=== PATIENT | male | born 1965 | race Caucasian/White ===

== ENCOUNTER → 2023-03-29 13:19 | Outpatient (REF) | payer BC, SELFPAY | LOC: HWRAD 13:19 | PROVIDERS: ATTENDING PHYSICIAN Nurse Practitioner Adult Health | DX: R05.3 Chronic cough (principal); Z87.09 Personal history of other diseases of the respiratory system; D50.9 Iron deficiency anemia, unspecified; R74.8 Abnormal levels of other serum enzymes | CPT/HCPCS: 71260; 74177; Q9967 ==

== ENCOUNTER 2023-04-10 07:19 | Outpatient (REF) | payer BC, SELFPAY ==
[2023-04-10] VITALS (11 sets, daily range): BP systolic 99–157; BP diastolic 87–98
[2023-04-10 07:36] LABS: % Basophils 0.5 % (0-2); % Eosinophils 1.9 % (0-6); % Immature Granulocytes 0.8 % (0-0.5); % Lymphocytes 6.4 % (20.5-51.1); % Neutrophils 82.4 % (42.2-75.2); Absolute Basophils 0.1 10^3/uL (0-0.2); Absolute Eosinophils 0.3 10^3/uL (0-0.7); Absolute Immature Granulocytes 0.1 10^3/uL (0-0.05); Absolute Monocytes 1.3 10^3/uL (0.1-0.6); Absolute Neutrophils 13.1 10^3/uL (1.4-6.5); Hematocrit 32.2 % (39.0-52.0); Mean Corp Hgb Conc. 31.1 g/dL (33.0-37.0); Mean Platelet Volume 9.2 fL (7.4-10.4); Nucleated Red Blood Cells % 0 % (-); Platelet Count 443 10^3/uL (130-400); Red Blood Cell Count 4.35 10^6/uL (4.70-6.10); Red Cell Dist. Width 15.1 % (11.5-14.5); White Blood Cell Count 15.9 10^3/uL (4.8-10.8)
[2023-04-10 07:49] LABS: INR 1.05; PT 13.5 Sec (11.4-14.6)
== END 2023-04-10 11:30 | disposition home or self-care (01) ==
LOC: RADI 07:19
PROVIDERS: ATTENDING PHYSICIAN Nurse Practitioner Adult Health; FAMILY PHYSICIAN Physician Assistant
DX: C78.7 Secondary malignant neoplasm of liver and intrahepatic bile duct (principal); C18.9 Malignant neoplasm of colon, unspecified; K63.89 Other specified diseases of intestine
CPT/HCPCS: 88307; 36415; 47000; 76937; 85025; 85610; 88333; 88341; 88342; 99152; 99153

== ENCOUNTER → 2023-04-24 12:46 | Outpatient (REF) | payer BC, SELFPAY | LOC: HWCARD 12:46 | PROVIDERS: ATTENDING PHYSICIAN Internal Medicine Hematology & Oncology; FAMILY PHYSICIAN Nurse Practitioner Adult Health | DX: C18.7 Malignant neoplasm of sigmoid colon (principal); C78.7 Secondary malignant neoplasm of liver and intrahepatic bile duct; C78.01 Secondary malignant neoplasm of right lung; R91.1 Solitary pulmonary nodule; D75.839 Thrombocytosis, unspecified; D50.0 Iron deficiency anemia secondary to blood loss (chronic) | CPT/HCPCS: 80053; 85025; 93005 ==

== ENCOUNTER → 2023-04-25 12:28 | Outpatient (REF) | payer BC, SELFPAY ==
[2023-04-25 13:00] VITALS: BP 155/99; BP_SYST 107
[2023-04-25] MEDS: ANCEF 10 IV (13:18)
[2023-04-25 14:43] VITALS: BP 149/92
== END ==
LOC: RADI 12:28
PROVIDERS: ATTENDING PHYSICIAN Internal Medicine Hematology & Oncology; FAMILY PHYSICIAN Nurse Practitioner Adult Health
DX: C18.7 Malignant neoplasm of sigmoid colon (principal)
CPT/HCPCS: 36561; 76937; 77001; 99152; 99153; C1788

== ENCOUNTER 2023-05-11 10:33 | Outpatient (RCR) | payer BC, SELFPAY ==
[2023-05-11 10:50] VITALS: BP 143/82
[2023-05-11] MEDS: TYLENOL 650 MG PO (11:03)
[2023-05-11 11:13] VITALS: BP 143/82
[2023-05-11 11:31] VITALS: BP 135/79
[2023-05-11 13:23] VITALS: BP 136/82
== END 2023-06-06 23:59 | disposition home or self-care (01) ==
LOC: OID 10:33
PROVIDERS: ATTENDING PHYSICIAN Internal Medicine Hematology & Oncology; FAMILY PHYSICIAN Nurse Practitioner Adult Health
DX: C18.7 Malignant neoplasm of sigmoid colon (principal); C78.7 Secondary malignant neoplasm of liver and intrahepatic bile duct; C78.01 Secondary malignant neoplasm of right lung; D50.9 Iron deficiency anemia, unspecified
CPT/HCPCS: 36430; 86850; 86900; 86901; 86920; P9016

== ENCOUNTER → 2023-05-12 14:34 | Outpatient (REF) | payer BC, SELFPAY ==
[2023-05-12 19:08] LABS: % Basophils 0.9 % (0-2); % Eosinophils 4.4 % (0-6); % Immature Granulocytes 0.3 % (0-0.5); % Lymphocytes 29.3 % (20.5-51.1); % Monocytes 12.9 % (1.7-9.3); % Neutrophils 52.2 % (42.2-75.2); Absolute Eosinophils 0.1 10^3/uL (0-0.7); Absolute Lymphocytes 0.9 10^3/uL (1.2-3.4); Absolute Monocytes 0.4 10^3/uL (0.1-0.6); Absolute Neutrophils 1.7 10^3/uL (1.4-6.5); Hematocrit 27.7 % (39.0-52.0); Hemoglobin 8.4 g/dL (13.0-18.0); Mean Corp Hgb Conc. 30.3 g/dL (33.0-37.0); Mean Corpuscular Hgb 23.3 pg (27.0-31.0); Mean Corpuscular Volume 76.7 fL (80.0-94.0); Nucleated Red Blood Cells % 0 % (-); Platelet Count 481 10^3/uL (130-400); Red Blood Cell Count 3.61 10^6/uL (4.70-6.10); White Blood Cell Count 3.2 10^3/uL (4.8-10.8)
== END ==
LOC: CLAB 14:34
PROVIDERS: ATTENDING PHYSICIAN Nurse Practitioner Adult Health
DX: C18.7 Malignant neoplasm of sigmoid colon (principal); C78.7 Secondary malignant neoplasm of liver and intrahepatic bile duct; C78.01 Secondary malignant neoplasm of right lung; R91.1 Solitary pulmonary nodule; D75.839 Thrombocytosis, unspecified; D50.0 Iron deficiency anemia secondary to blood loss (chronic); D50.9 Iron deficiency anemia, unspecified
CPT/HCPCS: 36415; 85025

== ENCOUNTER → 2023-05-23 07:08 | Outpatient (REF) | payer BC, SELFPAY ==
[2023-05-26 20:26] LABS: % Basophils 0.4 % (0-2); % Eosinophils 0.4 % (0-6); % Immature Granulocytes 0.2 % (0-0.5); % Lymphocytes 15.4 % (20.5-51.1); % Monocytes 8.2 % (1.7-9.3); % Neutrophils 75.4 % (42.2-75.2); Absolute Lymphocytes 0.8 10^3/uL (1.2-3.4); Absolute Monocytes 0.5 10^3/uL (0.1-0.6); Absolute Neutrophils 4.1 10^3/uL (1.4-6.5); Hematocrit 30.7 % (39.0-52.0); Hemoglobin 9.6 g/dL (13.0-18.0); Mean Corp Hgb Conc. 31.3 g/dL (33.0-37.0); Mean Corpuscular Hgb 25.2 pg (27.0-31.0); Mean Corpuscular Volume 80.6 fL (80.0-94.0); Mean Platelet Volume 10.3 fL (7.4-10.4); Nucleated Red Blood Cells % 0 % (-); Platelet Count 242 10^3/uL (130-400); Red Blood Cell Count 3.81 10^6/uL (4.70-6.10); Red Cell Dist. Width 26.7 % (11.5-14.5); White Blood Cell Count 5.5 10^3/uL (4.8-10.8)
[2023-05-26 20:45] LABS: Phosphorus 4.4 mg/dl (2.5-4.5)
== END ==
LOC: CLAB 07:08
PROVIDERS: ATTENDING PHYSICIAN Internal Medicine Hematology & Oncology
DX: C18.7 Malignant neoplasm of sigmoid colon (principal); C78.7 Secondary malignant neoplasm of liver and intrahepatic bile duct; C78.01 Secondary malignant neoplasm of right lung; R91.1 Solitary pulmonary nodule; D75.839 Thrombocytosis, unspecified; D50.0 Iron deficiency anemia secondary to blood loss (chronic); D50.9 Iron deficiency anemia, unspecified
CPT/HCPCS: 36415; 84100; 85025

== ENCOUNTER → 2023-08-11 11:56 | Outpatient (REF) | payer BC, SELFPAY | LOC: HWRAD 11:56 | PROVIDERS: ATTENDING PHYSICIAN Internal Medicine Hematology & Oncology; FAMILY PHYSICIAN Nurse Practitioner Adult Health | DX: C18.7 Malignant neoplasm of sigmoid colon (principal); C78.7 Secondary malignant neoplasm of liver and intrahepatic bile duct; C78.01 Secondary malignant neoplasm of right lung | CPT/HCPCS: 71260; 74177; Q9967 ==

== ENCOUNTER → 2023-09-20 12:11 | Outpatient (REF) | payer BC, SELFPAY ==
[2023-09-20 13:03] LABS: ALT (SGPT) 50 U/L (0-50); AST (SGOT) 63 U/L (17-59); Alkaline Phosphatase 187 U/L (38-126); Blood Urea Nitrogen 18 mg/dl (9-20); Calcium 9.4 mg/dl (8.4-10.2); Carbon Dioxide 21 mmol/L (22-30); Chloride 105 mmol/L (98-107); Glucose 116 mg/dl (70-99); Potassium 3.9 mmol/L (3.5-5.1); Sodium 136 mmol/L (135-145); Total Bilirubin 1.4 mg/dl (0.2-1.3); Total Protein 6.7 g/dl (6.3-8.2); eGFR > 60.00
[2023-09-20 13:17] LABS: % Basophils 0.2 % (0-2); % Eosinophils 1.5 % (0-6); % Immature Granulocytes 2.6 % (0-0.5); % Lymphocytes 8.1 % (20.5-51.1); % Monocytes 10.6 % (1.7-9.3); Absolute Eosinophils 0.2 10^3/uL (0-0.7); Absolute Immature Granulocytes 0.3 10^3/uL (0-0.05); Absolute Monocytes 1.3 10^3/uL (0.1-0.6); Absolute Neutrophils 9.6 10^3/uL (1.4-6.5); Hematocrit 31.3 % (39.0-52.0); Hemoglobin 11.3 g/dL (13.0-18.0); Mean Corp Hgb Conc. 36.1 g/dL (33.0-37.0); Mean Corpuscular Hgb 37.3 pg (27.0-31.0); Mean Corpuscular Volume 103.3 fL (80.0-94.0); Mean Platelet Volume 10.5 fL (7.4-10.4); Nucleated Red Blood Cells % 0 % (-); Platelet Count 91 10^3/uL (130-400); Red Blood Cell Count 3.03 10^6/uL (4.70-6.10); Red Cell Dist. Width 14.2 % (11.5-14.5); White Blood Cell Count 12.4 10^3/uL (4.8-10.8)
== END ==
LOC: REG 12:11
PROVIDERS: ATTENDING PHYSICIAN Internal Medicine Hematology & Oncology; FAMILY PHYSICIAN Nurse Practitioner Adult Health
DX: C18.7 Malignant neoplasm of sigmoid colon (principal); C78.7 Secondary malignant neoplasm of liver and intrahepatic bile duct; C78.01 Secondary malignant neoplasm of right lung; R91.1 Solitary pulmonary nodule; D75.839 Thrombocytosis, unspecified; D50.0 Iron deficiency anemia secondary to blood loss (chronic); D50.9 Iron deficiency anemia, unspecified; K12.31 Oral mucositis (ulcerative) due to antineoplastic therapy; D51.9 Vitamin B12 deficiency anemia, unspecified; E83.39 Other disorders of phosphorus metabolism; R79.9 Abnormal finding of blood chemistry, unspecified
CPT/HCPCS: 36415; 80053; 85025

== ENCOUNTER → 2023-11-15 08:58 | Outpatient (REF) | payer BC, SELFPAY | LOC: HWRAD 08:58 | PROVIDERS: ATTENDING PHYSICIAN Internal Medicine Hematology & Oncology; FAMILY PHYSICIAN Internal Medicine | DX: C18.7 Malignant neoplasm of sigmoid colon (principal); C78.7 Secondary malignant neoplasm of liver and intrahepatic bile duct; C78.01 Secondary malignant neoplasm of right lung; R91.1 Solitary pulmonary nodule; D75.839 Thrombocytosis, unspecified; D50.0 Iron deficiency anemia secondary to blood loss (chronic); D50.9 Iron deficiency anemia, unspecified; K12.31 Oral mucositis (ulcerative) due to antineoplastic therapy; D51.9 Vitamin B12 deficiency anemia, unspecified; E83.39 Other disorders of phosphorus metabolism; R79.9 Abnormal finding of blood chemistry, unspecified | CPT/HCPCS: 71260; 74177; Q9967 ==

== ENCOUNTER → 2023-11-28 13:18 | Outpatient (REF) | payer BC, SELFPAY ==
[2023-11-28 17:39] LABS: % Basophils 0.1 % (0-2); % Eosinophils 0.4 % (0-6); % Immature Granulocytes 0.9 % (0-0.5); % Lymphocytes 4.5 % (20.5-51.1); % Monocytes 3.3 % (1.7-9.3); % Neutrophils 90.8 % (42.2-75.2); Absolute Eosinophils 0.1 10^3/uL (0-0.7); Absolute Immature Granulocytes 0.2 10^3/uL (0-0.05); Absolute Lymphocytes 0.7 10^3/uL (1.2-3.4); Absolute Monocytes 0.5 10^3/uL (0.1-0.6); Absolute Neutrophils 14.6 10^3/uL (1.4-6.5); Hemoglobin 11.3 g/dL (13.0-18.0); Mean Corp Hgb Conc. 34.2 g/dL (33.0-37.0); Mean Corpuscular Hgb 36.1 pg (27.0-31.0); Mean Corpuscular Volume 105.4 fL (80.0-94.0); Mean Platelet Volume 10.5 fL (7.4-10.4); Nucleated Red Blood Cells % 0 % (-); Platelet Count 93 10^3/uL (130-400); Red Blood Cell Count 3.13 10^6/uL (4.70-6.10); Red Cell Dist. Width 14.6 % (11.5-14.5); White Blood Cell Count 16.1 10^3/uL (4.8-10.8)
[2023-11-28 17:46] LABS: ALT (SGPT) 40 U/L (0-50); AST (SGOT) 64 U/L (17-59); Alkaline Phosphatase 272 U/L (38-126); Blood Urea Nitrogen 14 mg/dl (9-20); Carbon Dioxide 23 mmol/L (22-30); Chloride 100 mmol/L (98-107); Glucose 92 mg/dl (70-99); Iron 87 ug/dl (49-181); Magnesium 1.9 mg/dl (1.6-2.3); Sodium 137 mmol/L (135-145); Total Bilirubin 1.9 mg/dl (0.2-1.3); Total Protein 6.8 g/dl (6.3-8.2); eGFR > 60.00
[2023-11-28 17:56] LABS: Percent Saturation 26 % (20-50); Total Iron Binding Capacity 329 ug/dl (261-462)
[2023-11-29 17:52] LABS: Direct Bilirubin 0.6 mg/dl (0.0-0.4)
== END ==
LOC: HWLAB 13:18
PROVIDERS: ATTENDING PHYSICIAN Internal Medicine Hematology & Oncology; FAMILY PHYSICIAN Nurse Practitioner Adult Health
DX: C18.7 Malignant neoplasm of sigmoid colon (principal); C78.7 Secondary malignant neoplasm of liver and intrahepatic bile duct; C78.01 Secondary malignant neoplasm of right lung; R91.1 Solitary pulmonary nodule; D50.0 Iron deficiency anemia secondary to blood loss (chronic); D50.9 Iron deficiency anemia, unspecified; E83.39 Other disorders of phosphorus metabolism; R79.9 Abnormal finding of blood chemistry, unspecified
CPT/HCPCS: 36415; 80053; 82248; 82728; 83540; 83550; 83735; 85025

== ENCOUNTER → 2023-11-29 14:46 | Outpatient (REF) | payer BC, SELFPAY | LOC: RAD 14:46 | PROVIDERS: ATTENDING PHYSICIAN Nurse Practitioner Acute Care; FAMILY PHYSICIAN Nurse Practitioner Adult Health | DX: C18.7 Malignant neoplasm of sigmoid colon (principal); C78.7 Secondary malignant neoplasm of liver and intrahepatic bile duct; C78.01 Secondary malignant neoplasm of right lung; R91.1 Solitary pulmonary nodule; D75.839 Thrombocytosis, unspecified; D50.0 Iron deficiency anemia secondary to blood loss (chronic); D50.9 Iron deficiency anemia, unspecified; K12.31 Oral mucositis (ulcerative) due to antineoplastic therapy | CPT/HCPCS: 93971 ==

== ENCOUNTER → 2024-02-02 07:31 | Outpatient (REF) | payer BC, SELFPAY | LOC: RAD 07:31 | PROVIDERS: ATTENDING PHYSICIAN Internal Medicine Hematology & Oncology; FAMILY PHYSICIAN Nurse Practitioner Adult Health | DX: C18.7 Malignant neoplasm of sigmoid colon (principal); C78.7 Secondary malignant neoplasm of liver and intrahepatic bile duct; C78.01 Secondary malignant neoplasm of right lung; R91.1 Solitary pulmonary nodule; D75.839 Thrombocytosis, unspecified; D50.0 Iron deficiency anemia secondary to blood loss (chronic); D51.1 Vitamin B12 deficiency anemia due to selective vitamin B12 malabsorption with proteinuria; D51.9 Vitamin B12 deficiency anemia, unspecified; E83.39 Other disorders of phosphorus metabolism; R79.9 Abnormal finding of blood chemistry, unspecified; M79.661 Pain in right lower leg | CPT/HCPCS: 71260; 74177; Q9967 ==

== ENCOUNTER → 2024-02-12 06:57 | Outpatient (REF) | payer BC, SELFPAY ==
[2024-02-12 09:58] LABS: % Basophils 0.8 % (0-2); % Eosinophils 3.6 % (0-6); % Immature Granulocytes 0.8 % (0-0.5); % Lymphocytes 15.8 % (20.5-51.1); % Monocytes 8.5 % (1.7-9.3); % Neutrophils 70.5 % (42.2-75.2); Absolute Basophils 0.1 10^3/uL (0-0.2); Absolute Eosinophils 0.2 10^3/uL (0-0.7); Absolute Immature Granulocytes 0.1 10^3/uL (0-0.05); Absolute Lymphocytes 0.9 10^3/uL (1.2-3.4); Absolute Monocytes 0.5 10^3/uL (0.1-0.6); Absolute Neutrophils 4.2 10^3/uL (1.4-6.5); Hematocrit 39.4 % (39.0-52.0); Hemoglobin 12.6 g/dL (13.0-18.0); Mean Corpuscular Hgb 33.9 pg (27.0-31.0); Mean Corpuscular Volume 105.9 fL (80.0-94.0); Mean Platelet Volume 11.5 fL (7.4-10.4); Nucleated Red Blood Cells % 0 % (-); Platelet Count 83 10^3/uL (130-400); Red Blood Cell Count 3.72 10^6/uL (4.70-6.10); Red Cell Dist. Width 15.9 % (11.5-14.5); White Blood Cell Count 5.9 10^3/uL (4.8-10.8)
[2024-02-12 10:13] LABS: ALT (SGPT) 39 U/L (0-50); AST (SGOT) 58 U/L (17-59); Albumin 3.9 g/dl (3.5-5.0); Alkaline Phosphatase 162 U/L (38-126); Blood Urea Nitrogen 15 mg/dl (9-20); Carbon Dioxide 22 mmol/L (22-30); Chloride 105 mmol/L (98-107); Glucose 88 mg/dl (70-99); Potassium 3.8 mmol/L (3.5-5.1); Sodium 140 mmol/L (135-145); Total Bilirubin 1.8 mg/dl (0.2-1.3); Total Protein 6.9 g/dl (6.3-8.2); eGFR > 60.00
[2024-02-12 19:02] LABS: CEA 20.7 ng/ml
== END ==
LOC: HWLAB 06:57
PROVIDERS: ATTENDING PHYSICIAN Internal Medicine Hematology & Oncology; FAMILY PHYSICIAN Nurse Practitioner Adult Health
DX: C18.7 Malignant neoplasm of sigmoid colon (principal); C78.7 Secondary malignant neoplasm of liver and intrahepatic bile duct; C78.01 Secondary malignant neoplasm of right lung
CPT/HCPCS: 36415; 80053; 82378; 85025

== ENCOUNTER → 2024-04-30 06:40 | Outpatient (REF) | payer BC, SELFPAY | LOC: RAD 06:40 | PROVIDERS: ATTENDING PHYSICIAN Internal Medicine Hematology & Oncology; FAMILY PHYSICIAN Nurse Practitioner Adult Health | DX: C18.7 Malignant neoplasm of sigmoid colon (principal); C78.7 Secondary malignant neoplasm of liver and intrahepatic bile duct; C78.01 Secondary malignant neoplasm of right lung; R91.1 Solitary pulmonary nodule; D75.839 Thrombocytosis, unspecified; D50.0 Iron deficiency anemia secondary to blood loss (chronic); D50.9 Iron deficiency anemia, unspecified; K12.31 Oral mucositis (ulcerative) due to antineoplastic therapy; D51.9 Vitamin B12 deficiency anemia, unspecified; E83.39 Other disorders of phosphorus metabolism; R79.9 Abnormal finding of blood chemistry, unspecified; M79.661 Pain in right lower leg | CPT/HCPCS: 71260; 74177; Q9967 ==

== ENCOUNTER → 2024-05-21 16:01 | Outpatient (REF) | payer BC, SELFPAY ==
[2024-05-21 17:06] LABS: Urine Protein 15 mg/dl
[2024-05-21 18:06] LABS: Protein/creatinine Ratio 1.4
== END ==
LOC: REG 16:01
PROVIDERS: ATTENDING PHYSICIAN Internal Medicine Hematology & Oncology; FAMILY PHYSICIAN Nurse Practitioner Adult Health
DX: C18.7 Malignant neoplasm of sigmoid colon (principal); C78.7 Secondary malignant neoplasm of liver and intrahepatic bile duct; C78.01 Secondary malignant neoplasm of right lung; R91.1 Solitary pulmonary nodule; D75.839 Thrombocytosis, unspecified; D50.0 Iron deficiency anemia secondary to blood loss (chronic); D50.9 Iron deficiency anemia, unspecified; K12.31 Oral mucositis (ulcerative) due to antineoplastic therapy; D51.9 Vitamin B12 deficiency anemia, unspecified; E83.39 Other disorders of phosphorus metabolism; R79.9 Abnormal finding of blood chemistry, unspecified; M79.669 Pain in unspecified lower leg
CPT/HCPCS: 82570; 84156

== ENCOUNTER → 2024-07-02 11:14 | Outpatient (REF) | payer BC, SELFPAY | LOC: HWRAD 11:14 | PROVIDERS: ATTENDING PHYSICIAN Nurse Practitioner Primary Care; FAMILY PHYSICIAN Nurse Practitioner Adult Health | DX: C18.7 Malignant neoplasm of sigmoid colon (principal); C78.7 Secondary malignant neoplasm of liver and intrahepatic bile duct; C78.01 Secondary malignant neoplasm of right lung; R91.1 Solitary pulmonary nodule; D75.839 Thrombocytosis, unspecified; D50.0 Iron deficiency anemia secondary to blood loss (chronic); D50.9 Iron deficiency anemia, unspecified; K12.31 Oral mucositis (ulcerative) due to antineoplastic therapy; D51.9 Vitamin B12 deficiency anemia, unspecified; E83.39 Other disorders of phosphorus metabolism; R79.9 Abnormal finding of blood chemistry, unspecified; M79.661 Pain in right lower leg | CPT/HCPCS: 36415; 73502; 86850; 86900; 86901; 86920 ==

== ENCOUNTER 2024-07-04 07:45 | Outpatient (RCR) | payer BC, SELFPAY ==
[2024-07-04] VITALS (7 sets, daily range): BP systolic 105–133; BP diastolic 55–72
== END 2024-07-06 23:59 | disposition home or self-care (01) ==
LOC: OID 07:45
PROVIDERS: ATTENDING PHYSICIAN Internal Medicine Hematology & Oncology; FAMILY PHYSICIAN Nurse Practitioner Adult Health
DX: C18.7 Malignant neoplasm of sigmoid colon (principal); C78.7 Secondary malignant neoplasm of liver and intrahepatic bile duct; C78.01 Secondary malignant neoplasm of right lung; R91.1 Solitary pulmonary nodule; D75.839 Thrombocytosis, unspecified; D50.0 Iron deficiency anemia secondary to blood loss (chronic); K12.31 Oral mucositis (ulcerative) due to antineoplastic therapy; E83.39 Other disorders of phosphorus metabolism; R79.9 Abnormal finding of blood chemistry, unspecified; M79.661 Pain in right lower leg
CPT/HCPCS: 36415; 36430; 86850; 86900; 86901; 86920; P9016

== ENCOUNTER 2024-07-18 09:12 | Outpatient (RCR) | payer BC, SELFPAY ==
[2024-07-16 12:02] VITALS: BP 119/69
[2024-07-16 12:10] LABS: % Basophils 0.6 % (0-2); % Eosinophils 2.6 % (0-6); % Immature Granulocytes 0.7 % (0-0.5); % Lymphocytes 10.4 % (20.5-51.1); % Monocytes 7.4 % (1.7-9.3); % Neutrophils 78.3 % (42.2-75.2); Absolute Eosinophils 0.2 10^3/uL (0-0.7); Absolute Immature Granulocytes 0.1 10^3/uL (0-0.05); Absolute Lymphocytes 0.7 10^3/uL (1.2-3.4); Absolute Monocytes 0.5 10^3/uL (0.1-0.6); Absolute Neutrophils 5.5 10^3/uL (1.4-6.5); Hematocrit 22.4 % (39.0-52.0); Hemoglobin 6.9 g/dL (13.0-18.0); Mean Corp Hgb Conc. 30.8 g/dL (33.0-37.0); Mean Corpuscular Hgb 27.5 pg (27.0-31.0); Mean Corpuscular Volume 89.2 fL (80.0-94.0); Mean Platelet Volume 11.9 fL (7.4-10.4); Nucleated Red Blood Cells % 0 % (-); Platelet Count 164 10^3/uL (130-400); Red Blood Cell Count 2.51 10^6/uL (4.70-6.10); Red Cell Dist. Width 19.9 % (11.5-14.5); Reticulocyte Count 3.3 % (0.4-2.8)
[2024-07-16 12:16] LABS: ALT (SGPT) 22 U/L (0-50); AST (SGOT) 36 U/L (17-59); Albumin 3.4 g/dl (3.5-5.0); Alkaline Phosphatase 186 U/L (38-126); Blood Urea Nitrogen 14 mg/dl (9-20); Calcium 8.5 mg/dl (8.4-10.2); Carbon Dioxide 22 mmol/L (22-30); Chloride 110 mmol/L (98-107); Direct Bilirubin 0.2 mg/dl (0.0-0.4); Glucose 119 mg/dl (70-99); LDH 231 U/L (120-246); Potassium 3.7 mmol/L (3.5-5.1); Sodium 140 mmol/L (135-145); Total Bilirubin 1.2 mg/dl (0.2-1.3); Total Protein 6.1 g/dl (6.3-8.2); eGFR > 60.00
[2024-07-16 12:20] LABS: Erythrocyte Sed Rate 60 mm/hour (0-20)
[2024-07-16 12:25] VITALS: BP 103/61
[2024-07-16 12:45] LABS: CEA 91.3 ng/ml
[2024-07-16 14:04] LABS: Folate > 20.0 ng/ml (2.76-20); Vitamin B12 > 1000 pg/ml (239-931)
[2024-07-16 14:11] VITALS: BP 114/68
[2024-07-17 10:21] LABS: % Basophils 0.3 % (0-2); % Eosinophils 2.4 % (0-6); % Immature Granulocytes 0.6 % (0-0.5); % Lymphocytes 10.8 % (20.5-51.1); % Monocytes 7.6 % (1.7-9.3); % Neutrophils 78.3 % (42.2-75.2); Absolute Eosinophils 0.2 10^3/uL (0-0.7); Absolute Lymphocytes 0.7 10^3/uL (1.2-3.4); Absolute Monocytes 0.5 10^3/uL (0.1-0.6); Absolute Neutrophils 4.9 10^3/uL (1.4-6.5); Hemoglobin 7.7 g/dL (13.0-18.0); Mean Corp Hgb Conc. 30.8 g/dL (33.0-37.0); Mean Corpuscular Hgb 27.7 pg (27.0-31.0); Mean Corpuscular Volume 89.9 fL (80.0-94.0); Mean Platelet Volume 10.6 fL (7.4-10.4); Platelet Count 162 10^3/uL (130-400); Red Blood Cell Count 2.78 10^6/uL (4.70-6.10); White Blood Cell Count 6.3 10^3/uL (4.8-10.8)
[2024-07-18 09:50] VITALS: BP 108/67
[2024-07-18 09:54] VITALS: BP 108/67
[2024-07-18 10:14] VITALS: BP 112/69
[2024-07-18 12:01] VITALS: BP 113/64
[2024-07-18 18:16] LABS: Erythropoietin (EPO) 628 mU/mL (4-27)
[2024-07-18 22:05] LABS: Beta-2-Microglobulin 2.9 mg/L (0.8-2.4)
[2024-07-19 02:05] LABS: Haptoglobin 97 mg/dL (30-200)
[2024-07-19 14:56] LABS: Hemoglobin 8.3 g/dL (13.0-18.0); Mean Corp Hgb Conc. 30.7 g/dL (33.0-37.0); Mean Corpuscular Hgb 27.7 pg (27.0-31.0); Platelet Count 179 10^3/uL (130-400); Red Cell Dist. Width 19.6 % (11.5-14.5); White Blood Cell Count 8.6 10^3/uL (4.8-10.8)
[2024-07-19 14:57] LABS: % Basophils 0.7 % (0-2); % Eosinophils 2.3 % (0-6); % Immature Granulocytes 2.1 % (0-0.5); % Lymphocytes 11.1 % (20.5-51.1); % Monocytes 8.2 % (1.7-9.3); % Neutrophils 75.6 % (42.2-75.2); Absolute Basophils 0.1 10^3/uL (0-0.2); Absolute Eosinophils 0.2 10^3/uL (0-0.7); Absolute Immature Granulocytes 0.2 10^3/uL (0-0.05); Absolute Monocytes 0.7 10^3/uL (0.1-0.6); Absolute Neutrophils 6.5 10^3/uL (1.4-6.5); Nucleated Red Blood Cells % 0 % (-)
[2024-07-21 02:56] LABS: Albumin 3.13 g/dL (3.75-5.01); Alpha 1 Globulin 0.32 g/dL (0.19-0.46); Alpha 2 Globulin 0.54 g/dL (0.48-1.05); Free Kappa Light Chains,Quant 42.99 mg/L (3.30-19.40); Free Lambda Light Chains,Quant 36.34 mg/L (5.71-26.30); IgA 477 mg/dL (68-408); IgG 802 mg/dL (768-1632); IgM 81 mg/dL (35-263); Immunofixation Electrophoresis IFE Done; Kappa/Lambda Fr Light Ratio 1.18 (0.26-1.65); Total Protein-Electrophoresis 5.9 g/dL (6.3-8.2)
[2024-07-22 11:36] LABS: ALT (SGPT) 22 U/L (0-50); AST (SGOT) 40 U/L (17-59); Albumin 3.4 g/dl (3.5-5.0); Alkaline Phosphatase 189 U/L (38-126); Blood Urea Nitrogen 11 mg/dl (9-20); Calcium 8.8 mg/dl (8.4-10.2); Carbon Dioxide 21 mmol/L (22-30); Chloride 111 mmol/L (98-107); Glucose 155 mg/dl (70-99); Potassium 3.9 mmol/L (3.5-5.1); Sodium 140 mmol/L (135-145); Total Bilirubin 1.5 mg/dl (0.2-1.3); Total Protein 6.4 g/dl (6.3-8.2); eGFR > 60.00
[2024-07-22 11:37] LABS: % Basophils 0.6 % (0-2); % Eosinophils 2.5 % (0-6); % Immature Granulocytes 1.4 % (0-0.5); % Lymphocytes 9.6 % (20.5-51.1); % Monocytes 5.7 % (1.7-9.3); % Neutrophils 80.2 % (42.2-75.2); Absolute Basophils 0.1 10^3/uL (0-0.2); Absolute Eosinophils 0.2 10^3/uL (0-0.7); Absolute Immature Granulocytes 0.1 10^3/uL (0-0.05); Absolute Lymphocytes 0.8 10^3/uL (1.2-3.4); Absolute Monocytes 0.5 10^3/uL (0.1-0.6); Absolute Neutrophils 6.7 10^3/uL (1.4-6.5); Hematocrit 29.5 % (39.0-52.0); Hemoglobin 9.2 g/dL (13.0-18.0); Mean Corp Hgb Conc. 31.2 g/dL (33.0-37.0); Mean Corpuscular Hgb 28.8 pg (27.0-31.0); Mean Corpuscular Volume 92.5 fL (80.0-94.0); Nucleated Red Blood Cells % 0 % (-); Platelet Count 180 10^3/uL (130-400); Red Blood Cell Count 3.19 10^6/uL (4.70-6.10); Red Cell Dist. Width 22.7 % (11.5-14.5); White Blood Cell Count 8.4 10^3/uL (4.8-10.8)
[2024-07-26 13:53] LABS: % Basophils 0.1 % (0-2); % Eosinophils 0.2 % (0-6); % Immature Granulocytes 0.2 % (0-0.5); % Lymphocytes 7.1 % (20.5-51.1); % Monocytes 2.7 % (1.7-9.3); % Neutrophils 89.7 % (42.2-75.2); Absolute Lymphocytes 0.8 10^3/uL (1.2-3.4); Absolute Monocytes 0.3 10^3/uL (0.1-0.6); Absolute Neutrophils 9.6 10^3/uL (1.4-6.5); Hematocrit 29.6 % (39.0-52.0); Hemoglobin 9.3 g/dL (13.0-18.0); Mean Corp Hgb Conc. 31.4 g/dL (33.0-37.0); Mean Corpuscular Hgb 29.9 pg (27.0-31.0); Mean Corpuscular Volume 95.2 fL (80.0-94.0); Mean Platelet Volume 9.3 fL (7.4-10.4); Platelet Count 135 10^3/uL (130-400); Red Blood Cell Count 3.11 10^6/uL (4.70-6.10); Red Cell Dist. Width 22.7 % (11.5-14.5); White Blood Cell Count 10.7 10^3/uL (4.8-10.8)
== END 2024-08-05 23:59 | disposition home or self-care (01) ==
LOC: OID 09:12
PROVIDERS: ATTENDING PHYSICIAN Internal Medicine Hematology & Oncology; FAMILY PHYSICIAN Nurse Practitioner Adult Health
DX: C18.7 Malignant neoplasm of sigmoid colon (principal); C78.7 Secondary malignant neoplasm of liver and intrahepatic bile duct; C78.01 Secondary malignant neoplasm of right lung; R91.1 Solitary pulmonary nodule; D75.839 Thrombocytosis, unspecified; D50.0 Iron deficiency anemia secondary to blood loss (chronic); D50.9 Iron deficiency anemia, unspecified; K12.31 Oral mucositis (ulcerative) due to antineoplastic therapy; E83.39 Other disorders of phosphorus metabolism; R79.9 Abnormal finding of blood chemistry, unspecified; M25.552 Pain in left hip; M79.661 Pain in right lower leg
CPT/HCPCS: 36415; 36430; 36591; 80053; 80076; 82232; 82378; 82607; 82668; 82746; 82784; 83010; 83521; 83615; 84155; 84165; 85025; 85045; 85652; 86334; 86850; 86880; 86900; 86901; 86920; P9016

== ENCOUNTER 2024-07-30 06:24 | Day surgery (SDC) | payer BC, SELFPAY | END 2024-07-30 09:39 | disposition home or self-care (01) | LOC: GI 06:24 | PROVIDERS: ATTENDING PHYSICIAN Surgery | DX: K64.8 Other hemorrhoids (principal); C18.7 Malignant neoplasm of sigmoid colon; K56.690 Other partial intestinal obstruction | CPT/HCPCS: 45381 ==

== ENCOUNTER → 2024-07-31 16:48 | Outpatient (REF) | payer BC, SELFPAY | LOC: RAD 16:48 | PROVIDERS: ATTENDING PHYSICIAN Internal Medicine Hematology & Oncology; FAMILY PHYSICIAN Nurse Practitioner Adult Health | DX: C18.7 Malignant neoplasm of sigmoid colon (principal); C78.7 Secondary malignant neoplasm of liver and intrahepatic bile duct; C78.01 Secondary malignant neoplasm of right lung; R91.1 Solitary pulmonary nodule; D75.839 Thrombocytosis, unspecified; D50.0 Iron deficiency anemia secondary to blood loss (chronic); D50.9 Iron deficiency anemia, unspecified; K12.31 Oral mucositis (ulcerative) due to antineoplastic therapy; D51.9 Vitamin B12 deficiency anemia, unspecified; E83.39 Other disorders of phosphorus metabolism; R79.9 Abnormal finding of blood chemistry, unspecified; M79.661 Pain in right lower leg; D63.0 Anemia in neoplastic disease | CPT/HCPCS: 71260; 74177; Q9967 ==

== ENCOUNTER 2024-08-06 11:38 | Outpatient (RCR) | payer BC, SELFPAY ==
[2024-08-06 11:41] LABS: Hematocrit 29.2 % (39.0-52.0); Hemoglobin 9.0 g/dL (13.0-18.0); Mean Corp Hgb Conc. 30.8 g/dL (33.0-37.0); Mean Corpuscular Volume 94.5 fL (80.0-94.0); Platelet Count 119 10^3/uL (130-400); Red Cell Dist. Width 22.2 % (11.5-14.5)
[2024-08-06 12:29] LABS: ALT (SGPT) 30 U/L (0-50); AST (SGOT) 35 U/L (17-59); Albumin 3.3 g/dl (3.5-5.0); Alkaline Phosphatase 176 U/L (38-126); Blood Urea Nitrogen 13 mg/dl (9-20); Calcium 8.7 mg/dl (8.4-10.2); Carbon Dioxide 26 mmol/L (22-30); Chloride 112 mmol/L (98-107); Glucose 128 mg/dl (70-99); Potassium 3.8 mmol/L (3.5-5.1); Sodium 142 mmol/L (135-145); Total Protein 6.1 g/dl (6.3-8.2); eGFR > 60.00
== END 2024-09-05 23:59 | disposition home or self-care (01) ==
LOC: OID 11:38
PROVIDERS: ATTENDING PHYSICIAN Internal Medicine Hematology & Oncology; FAMILY PHYSICIAN Nurse Practitioner Adult Health
DX: C18.7 Malignant neoplasm of sigmoid colon (principal); C78.7 Secondary malignant neoplasm of liver and intrahepatic bile duct; C78.01 Secondary malignant neoplasm of right lung; R91.1 Solitary pulmonary nodule; D75.839 Thrombocytosis, unspecified; D50.0 Iron deficiency anemia secondary to blood loss (chronic); D50.9 Iron deficiency anemia, unspecified; K12.31 Oral mucositis (ulcerative) due to antineoplastic therapy; E83.39 Other disorders of phosphorus metabolism; R79.9 Abnormal finding of blood chemistry, unspecified; M79.661 Pain in right lower leg; M25.552 Pain in left hip
CPT/HCPCS: 80053; 85025

== ENCOUNTER → 2024-08-30 11:02 | Outpatient (REF) | payer BC, SELFPAY ==
[2024-08-30 12:42] LABS: Iron 37 ug/dl (49-181)
[2024-08-30 12:51] LABS: Total Iron Binding Capacity 333 ug/dl (261-462)
[2024-08-30 13:01] LABS: Ferritin 235.0 ng/ml (17.9-464.0)
[2024-08-30 14:02] LABS: CEA 56.4 ng/ml
== END ==
LOC: REG 11:02
PROVIDERS: ATTENDING PHYSICIAN Nurse Practitioner Primary Care; FAMILY PHYSICIAN Nurse Practitioner Adult Health
DX: C18.7 Malignant neoplasm of sigmoid colon (principal); C78.7 Secondary malignant neoplasm of liver and intrahepatic bile duct; C78.01 Secondary malignant neoplasm of right lung; R91.1 Solitary pulmonary nodule; D75.839 Thrombocytosis, unspecified; D50.0 Iron deficiency anemia secondary to blood loss (chronic); D50.9 Iron deficiency anemia, unspecified; K12.31 Oral mucositis (ulcerative) due to antineoplastic therapy; D51.9 Vitamin B12 deficiency anemia, unspecified; E83.39 Other disorders of phosphorus metabolism; R79.9 Abnormal finding of blood chemistry, unspecified; M79.661 Pain in right lower leg; D63.0 Anemia in neoplastic disease
CPT/HCPCS: 36415; 82378; 82728; 83540; 83550

== ENCOUNTER → 2024-09-02 09:34 | Outpatient (REF) | payer BC, SELFPAY ==
[2024-09-02 11:06] LABS: Hematocrit 29.7 % (39.0-52.0); Hemoglobin 9.0 g/dL (13.0-18.0); Mean Corp Hgb Conc. 30.3 g/dL (33.0-37.0); Mean Corpuscular Volume 92.8 fL (80.0-94.0); Platelet Count 108 10^3/uL (130-400); Red Cell Dist. Width 20.7 % (11.5-14.5)
[2024-09-02 11:40] LABS: Nucleated Red Blood Cells % 0 % (-)
[2024-09-02 11:47] LABS: ALT (SGPT) 25 U/L (0-50); AST (SGOT) 33 U/L (17-59); Albumin 3.6 g/dl (3.5-5.0); Alkaline Phosphatase 186 U/L (38-126); Blood Urea Nitrogen 11 mg/dl (9-20); Calcium 9.1 mg/dl (8.4-10.2); Carbon Dioxide 25 mmol/L (22-30); Chloride 110 mmol/L (98-107); Glucose 117 mg/dl (70-99); Potassium 4.0 mmol/L (3.5-5.1); Sodium 141 mmol/L (135-145); Total Protein 6.2 g/dl (6.3-8.2); eGFR > 60.00
== END ==
LOC: REG 09:34
PROVIDERS: ATTENDING PHYSICIAN Internal Medicine Hematology & Oncology; FAMILY PHYSICIAN Nurse Practitioner Adult Health
DX: C18.7 Malignant neoplasm of sigmoid colon (principal); C78.7 Secondary malignant neoplasm of liver and intrahepatic bile duct; C78.01 Secondary malignant neoplasm of right lung; R91.1 Solitary pulmonary nodule; D75.839 Thrombocytosis, unspecified; D50.0 Iron deficiency anemia secondary to blood loss (chronic); D50.9 Iron deficiency anemia, unspecified
CPT/HCPCS: 36415; 80053; 85025

== ENCOUNTER → 2024-09-13 10:15 | Outpatient (REF) | payer BC, SELFPAY ==
[2024-09-13 11:39] LABS: Hematocrit 28.8 % (39.0-52.0); Hemoglobin 8.7 g/dL (13.0-18.0); Mean Corp Hgb Conc. 30.2 g/dL (33.0-37.0); Mean Corpuscular Volume 92.0 fL (80.0-94.0); Nucleated Red Blood Cells % 0 % (-); Platelet Count 124 10^3/uL (130-400); Red Cell Dist. Width 20.2 % (11.5-14.5)
[2024-09-13 14:37] LABS: ALT (SGPT) 26 U/L (0-50); AST (SGOT) 33 U/L (17-59); Albumin 3.8 g/dl (3.5-5.0); Alkaline Phosphatase 175 U/L (38-126); Blood Urea Nitrogen 12 mg/dl (9-20); Calcium 9.1 mg/dl (8.4-10.2); Carbon Dioxide 25 mmol/L (22-30); Chloride 108 mmol/L (98-107); Glucose 116 mg/dl (70-99); Potassium 4.2 mmol/L (3.5-5.1); Sodium 138 mmol/L (135-145); Total Protein 6.4 g/dl (6.3-8.2); eGFR > 60.00
== END ==
LOC: REG 10:15
PROVIDERS: ATTENDING PHYSICIAN Internal Medicine Hematology & Oncology; FAMILY PHYSICIAN Nurse Practitioner Adult Health
DX: C18.7 Malignant neoplasm of sigmoid colon (principal); C78.7 Secondary malignant neoplasm of liver and intrahepatic bile duct; C78.01 Secondary malignant neoplasm of right lung; R91.1 Solitary pulmonary nodule; D75.839 Thrombocytosis, unspecified; D50.0 Iron deficiency anemia secondary to blood loss (chronic); D50.9 Iron deficiency anemia, unspecified; K12.31 Oral mucositis (ulcerative) due to antineoplastic therapy; D51.9 Vitamin B12 deficiency anemia, unspecified; E83.39 Other disorders of phosphorus metabolism; R79.9 Abnormal finding of blood chemistry, unspecified; M79.661 Pain in right lower leg; D63.0 Anemia in neoplastic disease
CPT/HCPCS: 36415; 80053; 85025

== ENCOUNTER → 2024-09-27 11:14 | Outpatient (REF) | payer BC, SELFPAY ==
[2024-09-27 12:02] LABS: Hematocrit 26.2 % (39.0-52.0); Hemoglobin 8.2 g/dL (13.0-18.0); Mean Corp Hgb Conc. 31.3 g/dL (33.0-37.0); Mean Corpuscular Volume 89.1 fL (80.0-94.0); Nucleated Red Blood Cells % 0 % (-); Platelet Count 114 10^3/uL (130-400); Red Cell Dist. Width 19.4 % (11.5-14.5)
[2024-09-27 13:20] LABS: ALT (SGPT) 26 U/L (0-50); AST (SGOT) 31 U/L (17-59); Albumin 3.8 g/dl (3.5-5.0); Alkaline Phosphatase 194 U/L (38-126); Blood Urea Nitrogen 12 mg/dl (9-20); Calcium 9.6 mg/dl (8.4-10.2); Carbon Dioxide 25 mmol/L (22-30); Chloride 108 mmol/L (98-107); Glucose 130 mg/dl (70-99); Potassium 4.0 mmol/L (3.5-5.1); Sodium 139 mmol/L (135-145); Total Protein 6.4 g/dl (6.3-8.2); eGFR > 60.00
== END ==
LOC: REG 11:14
PROVIDERS: ATTENDING PHYSICIAN Internal Medicine Hematology & Oncology; FAMILY PHYSICIAN Nurse Practitioner Adult Health
DX: C18.7 Malignant neoplasm of sigmoid colon (principal); C78.7 Secondary malignant neoplasm of liver and intrahepatic bile duct; C78.01 Secondary malignant neoplasm of right lung; R91.1 Solitary pulmonary nodule; D75.839 Thrombocytosis, unspecified; D50.0 Iron deficiency anemia secondary to blood loss (chronic); K12.31 Oral mucositis (ulcerative) due to antineoplastic therapy; D51.9 Vitamin B12 deficiency anemia, unspecified; E83.39 Other disorders of phosphorus metabolism; R79.9 Abnormal finding of blood chemistry, unspecified; M79.661 Pain in right lower leg; D63.0 Anemia in neoplastic disease
CPT/HCPCS: 36415; 80053; 85025

== ENCOUNTER → 2024-10-11 11:43 | Outpatient (REF) | payer BC, SELFPAY ==
[2024-10-11 13:02] LABS: Hematocrit 25.4 % (39.0-52.0); Hemoglobin 7.9 g/dL (13.0-18.0); Mean Corp Hgb Conc. 31.1 g/dL (33.0-37.0); Mean Corpuscular Volume 91.4 fL (80.0-94.0); Platelet Count 126 10^3/uL (130-400); Red Cell Dist. Width 20.4 % (11.5-14.5)
[2024-10-11 13:20] LABS: ALT (SGPT) 27 U/L (0-50); AST (SGOT) 33 U/L (17-59); Albumin 3.8 g/dl (3.5-5.0); Alkaline Phosphatase 188 U/L (38-126); Blood Urea Nitrogen 13 mg/dl (9-20); Calcium 9.2 mg/dl (8.4-10.2); Carbon Dioxide 23 mmol/L (22-30); Chloride 107 mmol/L (98-107); Glucose 123 mg/dl (70-99); Potassium 4.6 mmol/L (3.5-5.1); Sodium 137 mmol/L (135-145); Total Protein 6.3 g/dl (6.3-8.2); eGFR > 60.00
[2024-10-11 15:10] LABS: Absolute Neutrophils -Man Diff 5.8 10^3/uL (1.4-6.5)
[2024-10-11 15:14] LABS: Normal RBC Morphology No; Platelets Checked Yes
[2024-10-11 15:16] LABS: Anisocytosis 1+; Hypochromasia 1+; Ovalocytes 1+; Polychromasia 1+; Tear Drop Red Blood Cells 1+
[2024-10-11 15:17] LABS: Total Cells Counted 100
== END ==
LOC: REG 11:43
PROVIDERS: ATTENDING PHYSICIAN Internal Medicine Hematology & Oncology; FAMILY PHYSICIAN Nurse Practitioner Adult Health
DX: C18.7 Malignant neoplasm of sigmoid colon (principal); C78.7 Secondary malignant neoplasm of liver and intrahepatic bile duct; C78.01 Secondary malignant neoplasm of right lung; R91.1 Solitary pulmonary nodule; D75.839 Thrombocytosis, unspecified; D50.0 Iron deficiency anemia secondary to blood loss (chronic); D50.9 Iron deficiency anemia, unspecified; K12.31 Oral mucositis (ulcerative) due to antineoplastic therapy; D51.9 Vitamin B12 deficiency anemia, unspecified; E83.39 Other disorders of phosphorus metabolism; R79.9 Abnormal finding of blood chemistry, unspecified; M79.661 Pain in right lower leg; D63.0 Anemia in neoplastic disease
CPT/HCPCS: 36415; 80053; 85025

== ENCOUNTER → 2024-10-14 10:51 | Outpatient (REF) | payer BC, SELFPAY ==
[2024-10-14 11:37] LABS: Hematocrit 28.9 % (39.0-52.0); Hemoglobin 8.6 g/dL (13.0-18.0); Mean Corp Hgb Conc. 29.8 g/dL (33.0-37.0); Mean Corpuscular Volume 91.5 fL (80.0-94.0); Nucleated Red Blood Cells % 0 % (-); Platelet Count 129 10^3/uL (130-400); Red Cell Dist. Width 20.8 % (11.5-14.5)
[2024-10-14 12:08] LABS: Iron 59 ug/dl (49-181)
[2024-10-14 12:17] LABS: Total Iron Binding Capacity 356 ug/dl (261-462)
[2024-10-14 12:39] LABS: Ferritin 309.0 ng/ml (17.9-464.0)
== END ==
LOC: REG 10:51
PROVIDERS: ATTENDING PHYSICIAN Nurse Practitioner Primary Care; FAMILY PHYSICIAN Nurse Practitioner Adult Health
DX: C18.7 Malignant neoplasm of sigmoid colon (principal); C78.7 Secondary malignant neoplasm of liver and intrahepatic bile duct; C78.01 Secondary malignant neoplasm of right lung; R91.1 Solitary pulmonary nodule; D75.839 Thrombocytosis, unspecified; D50.0 Iron deficiency anemia secondary to blood loss (chronic); D50.9 Iron deficiency anemia, unspecified; K12.31 Oral mucositis (ulcerative) due to antineoplastic therapy; D51.9 Vitamin B12 deficiency anemia, unspecified; E83.39 Other disorders of phosphorus metabolism; R79.9 Abnormal finding of blood chemistry, unspecified; M79.661 Pain in right lower leg; D63.0 Anemia in neoplastic disease
CPT/HCPCS: 36415; 82728; 83540; 83550; 85025

== ENCOUNTER → 2024-10-25 11:48 | Outpatient (REF) | payer BC, SELFPAY ==
[2024-10-25 13:56] LABS: Hematocrit 25.2 % (39.0-52.0); Hemoglobin 8.0 g/dL (13.0-18.0); Mean Corp Hgb Conc. 31.7 g/dL (33.0-37.0); Mean Corpuscular Volume 90.6 fL (80.0-94.0); Nucleated Red Blood Cells % 0 % (-); Platelet Count 112 10^3/uL (130-400); Red Cell Dist. Width 19.9 % (11.5-14.5)
[2024-10-25 15:17] LABS: ALT (SGPT) 27 U/L (0-50); AST (SGOT) 33 U/L (17-59); Albumin 3.8 g/dl (3.5-5.0); Alkaline Phosphatase 168 U/L (38-126); Blood Urea Nitrogen 13 mg/dl (9-20); Calcium 9.4 mg/dl (8.4-10.2); Carbon Dioxide 23 mmol/L (22-30); Chloride 108 mmol/L (98-107); Glucose 127 mg/dl (70-99); Potassium 3.9 mmol/L (3.5-5.1); Sodium 139 mmol/L (135-145); Total Protein 6.3 g/dl (6.3-8.2); eGFR > 60.00
== END ==
LOC: REG 11:48
PROVIDERS: ATTENDING PHYSICIAN Internal Medicine Hematology & Oncology; FAMILY PHYSICIAN Nurse Practitioner Adult Health
DX: C18.7 Malignant neoplasm of sigmoid colon (principal); C78.7 Secondary malignant neoplasm of liver and intrahepatic bile duct; C78.01 Secondary malignant neoplasm of right lung; R91.1 Solitary pulmonary nodule; D75.839 Thrombocytosis, unspecified; D50.0 Iron deficiency anemia secondary to blood loss (chronic); D50.9 Iron deficiency anemia, unspecified; K12.31 Oral mucositis (ulcerative) due to antineoplastic therapy; D51.9 Vitamin B12 deficiency anemia, unspecified; E83.39 Other disorders of phosphorus metabolism; R79.9 Abnormal finding of blood chemistry, unspecified; M79.661 Pain in right lower leg; D63.0 Anemia in neoplastic disease
CPT/HCPCS: 36415; 80053; 85025

== ENCOUNTER → 2024-10-28 09:02 | Outpatient (REF) | payer BC, SELFPAY ==
[2024-10-28 10:30] LABS: Iron 56 ug/dl (49-181)
[2024-10-28 11:02] LABS: Total Iron Binding Capacity 352 ug/dl (261-462)
[2024-10-28 11:07] LABS: Ferritin 225.0 ng/ml (17.9-464.0)
[2024-10-28 12:04] LABS: Hematocrit 29.5 % (39.0-52.0); Hemoglobin 8.7 g/dL (13.0-18.0); Mean Corp Hgb Conc. 29.5 g/dL (33.0-37.0); Mean Corpuscular Volume 91.6 fL (80.0-94.0); Platelet Count 119 10^3/uL (130-400); Red Cell Dist. Width 21.1 % (11.5-14.5)
[2024-10-28 14:45] LABS: Total Cells Counted 100
[2024-10-28 14:46] LABS: Anisocytosis 2+; Normal RBC Morphology No; Platelets Checked Yes
[2024-10-28 14:47] LABS: Hypochromasia 1+; Ovalocytes 1+; Polychromasia 1+
[2024-10-28 14:48] LABS: Tear Drop Red Blood Cells 1+
[2024-10-28 14:49] LABS: Absolute Neutrophils -Man Diff 1.1 10^3/uL (1.4-6.5)
== END ==
LOC: REG 09:02
PROVIDERS: ATTENDING PHYSICIAN Nurse Practitioner Primary Care; FAMILY PHYSICIAN Nurse Practitioner Adult Health
DX: C18.7 Malignant neoplasm of sigmoid colon (principal); C78.7 Secondary malignant neoplasm of liver and intrahepatic bile duct; C78.01 Secondary malignant neoplasm of right lung; R91.1 Solitary pulmonary nodule; D75.839 Thrombocytosis, unspecified; D50.0 Iron deficiency anemia secondary to blood loss (chronic); D50.9 Iron deficiency anemia, unspecified; K12.31 Oral mucositis (ulcerative) due to antineoplastic therapy; D51.9 Vitamin B12 deficiency anemia, unspecified; E83.39 Other disorders of phosphorus metabolism; R79.9 Abnormal finding of blood chemistry, unspecified; M79.661 Pain in right lower leg; D63.0 Anemia in neoplastic disease
CPT/HCPCS: 36415; 82728; 83540; 83550; 85025

== ENCOUNTER → 2024-11-04 07:04 | Outpatient (REF) | payer BC, SELFPAY | LOC: RAD 07:04 | PROVIDERS: ATTENDING PHYSICIAN Nurse Practitioner Primary Care; FAMILY PHYSICIAN Nurse Practitioner Adult Health | DX: C18.7 Malignant neoplasm of sigmoid colon (principal); C78.7 Secondary malignant neoplasm of liver and intrahepatic bile duct; R91.1 Solitary pulmonary nodule; C78.01 Secondary malignant neoplasm of right lung; D75.839 Thrombocytosis, unspecified; D50.0 Iron deficiency anemia secondary to blood loss (chronic); D50.9 Iron deficiency anemia, unspecified; K12.31 Oral mucositis (ulcerative) due to antineoplastic therapy; D51.9 Vitamin B12 deficiency anemia, unspecified; E83.39 Other disorders of phosphorus metabolism; R79.9 Abnormal finding of blood chemistry, unspecified; M79.661 Pain in right lower leg; D63.0 Anemia in neoplastic disease | CPT/HCPCS: 71260; 74177; Q9967 ==

== ENCOUNTER → 2024-11-11 09:32 | Outpatient (REF) | payer BC, SELFPAY ==
[2024-11-11 11:28] LABS: ALT (SGPT) 26 U/L (0-50); AST (SGOT) 36 U/L (17-59); Albumin 4.0 g/dl (3.5-5.0); Alkaline Phosphatase 195 U/L (38-126); Blood Urea Nitrogen 10 mg/dl (9-20); Calcium 9.4 mg/dl (8.4-10.2); Carbon Dioxide 25 mmol/L (22-30); Chloride 110 mmol/L (98-107); Glucose 120 mg/dl (70-99); Potassium 4.6 mmol/L (3.5-5.1); Sodium 141 mmol/L (135-145); Total Protein 6.6 g/dl (6.3-8.2); eGFR > 60.00
[2024-11-11 12:11] LABS: Hematocrit 28.5 % (39.0-52.0); Hemoglobin 8.3 g/dL (13.0-18.0); Mean Corp Hgb Conc. 29.1 g/dL (33.0-37.0); Mean Corpuscular Volume 91.6 fL (80.0-94.0); Nucleated Red Blood Cells % 0 % (-); Platelet Count 117 10^3/uL (130-400); Red Cell Dist. Width 21.3 % (11.5-14.5)
[2024-11-11 19:47] LABS: CEA 59.4 ng/ml
== END ==
LOC: REG 09:32
PROVIDERS: ATTENDING PHYSICIAN Internal Medicine Hematology & Oncology; FAMILY PHYSICIAN Nurse Practitioner Adult Health
DX: C18.7 Malignant neoplasm of sigmoid colon (principal); C78.7 Secondary malignant neoplasm of liver and intrahepatic bile duct; C78.01 Secondary malignant neoplasm of right lung; R91.1 Solitary pulmonary nodule; D75.839 Thrombocytosis, unspecified; D50.0 Iron deficiency anemia secondary to blood loss (chronic); D50.9 Iron deficiency anemia, unspecified; D63.0 Anemia in neoplastic disease; M79.661 Pain in right lower leg
CPT/HCPCS: 36415; 80053; 82378; 85025

== ENCOUNTER → 2024-11-13 11:48 | Outpatient (REF) | payer BC, SELFPAY ==
[2024-11-13 11:23] LABS: Reticulocyte Count 5.3 % (0.4-2.8)
[2024-11-13 11:51] LABS: LDH 240 U/L (120-246)
[2024-11-13 12:59] LABS: Folate > 20.0 ng/ml (2.76-20); Vitamin B12 > 1000 pg/ml (239-931)
== END ==
LOC: OIDL 11:48
PROVIDERS: ATTENDING PHYSICIAN Internal Medicine Hematology & Oncology
DX: C18.7 Malignant neoplasm of sigmoid colon (principal); C78.7 Secondary malignant neoplasm of liver and intrahepatic bile duct; C78.01 Secondary malignant neoplasm of right lung; R91.1 Solitary pulmonary nodule; D75.839 Thrombocytosis, unspecified; D50.0 Iron deficiency anemia secondary to blood loss (chronic); D50.9 Iron deficiency anemia, unspecified; K12.31 Oral mucositis (ulcerative) due to antineoplastic therapy; D51.9 Vitamin B12 deficiency anemia, unspecified; E83.39 Other disorders of phosphorus metabolism; R79.9 Abnormal finding of blood chemistry, unspecified; M79.661 Pain in right lower leg; D63.0 Anemia in neoplastic disease
CPT/HCPCS: 82607; 82668; 82746; 82784; 83010; 83521; 83615; 84155; 84165; 84443; 85045; 86334; 86880

== ENCOUNTER → 2024-11-25 09:30 | Outpatient (REF) | payer BC, SELFPAY ==
[2024-11-25 11:21] LABS: Hematocrit 28.9 % (39.0-52.0); Hemoglobin 8.2 g/dL (13.0-18.0); Mean Corp Hgb Conc. 28.4 g/dL (33.0-37.0); Mean Corpuscular Volume 92.0 fL (80.0-94.0); Platelet Count 121 10^3/uL (130-400); Red Cell Dist. Width 21.0 % (11.5-14.5)
[2024-11-25 11:41] LABS: ALT (SGPT) 24 U/L (0-50); AST (SGOT) 35 U/L (17-59); Albumin 3.7 g/dl (3.5-5.0); Alkaline Phosphatase 175 U/L (38-126); Blood Urea Nitrogen 10 mg/dl (9-20); Calcium 9.4 mg/dl (8.4-10.2); Carbon Dioxide 25 mmol/L (22-30); Chloride 109 mmol/L (98-107); Glucose 122 mg/dl (70-99); Potassium 4.6 mmol/L (3.5-5.1); Sodium 137 mmol/L (135-145); Total Protein 6.2 g/dl (6.3-8.2); eGFR > 60.00
[2024-11-25 12:47] LABS: Nucleated Red Blood Cells % 1.1 % (-)
[2024-11-25 12:48] LABS: Anisocytosis Slight; Hypochromasia 1+; Normal RBC Morphology No
== END ==
LOC: REG 09:30
PROVIDERS: ATTENDING PHYSICIAN Internal Medicine Hematology & Oncology; FAMILY PHYSICIAN Nurse Practitioner Adult Health
DX: C18.7 Malignant neoplasm of sigmoid colon (principal); C78.7 Secondary malignant neoplasm of liver and intrahepatic bile duct; C78.01 Secondary malignant neoplasm of right lung; R91.1 Solitary pulmonary nodule; D75.839 Thrombocytosis, unspecified; D50.0 Iron deficiency anemia secondary to blood loss (chronic); D50.9 Iron deficiency anemia, unspecified; K12.31 Oral mucositis (ulcerative) due to antineoplastic therapy; D51.9 Vitamin B12 deficiency anemia, unspecified; E83.39 Other disorders of phosphorus metabolism; R79.9 Abnormal finding of blood chemistry, unspecified; M79.661 Pain in right lower leg; D63.0 Anemia in neoplastic disease
CPT/HCPCS: 36415; 80053; 85025

== ENCOUNTER → 2024-12-09 11:00 | Outpatient (REF) | payer BC, SELFPAY ==
[2024-12-09 11:55] LABS: Hematocrit 27.4 % (39.0-52.0); Hemoglobin 8.2 g/dL (13.0-18.0); Mean Corp Hgb Conc. 29.9 g/dL (33.0-37.0); Mean Corpuscular Volume 91.0 fL (80.0-94.0); Nucleated Red Blood Cells % 0.7 % (-); Platelet Count 120 10^3/uL (130-400); Red Cell Dist. Width 20.7 % (11.5-14.5)
[2024-12-09 12:25] LABS: ALT (SGPT) 21 U/L (0-50); AST (SGOT) 31 U/L (17-59); Albumin 3.8 g/dl (3.5-5.0); Alkaline Phosphatase 180 U/L (38-126); Blood Urea Nitrogen 10 mg/dl (9-20); Calcium 9.2 mg/dl (8.4-10.2); Carbon Dioxide 25 mmol/L (22-30); Chloride 108 mmol/L (98-107); Glucose 122 mg/dl (70-99); Potassium 4.5 mmol/L (3.5-5.1); Sodium 137 mmol/L (135-145); Total Protein 6.3 g/dl (6.3-8.2); eGFR > 60.00
== END ==
LOC: REG 11:00
PROVIDERS: ATTENDING PHYSICIAN Internal Medicine Hematology & Oncology; FAMILY PHYSICIAN Nurse Practitioner Adult Health
DX: C18.7 Malignant neoplasm of sigmoid colon (principal); C78.7 Secondary malignant neoplasm of liver and intrahepatic bile duct; C78.01 Secondary malignant neoplasm of right lung; R91.1 Solitary pulmonary nodule; D75.839 Thrombocytosis, unspecified; D50.0 Iron deficiency anemia secondary to blood loss (chronic); D50.9 Iron deficiency anemia, unspecified; K12.31 Oral mucositis (ulcerative) due to antineoplastic therapy; D51.9 Vitamin B12 deficiency anemia, unspecified; E83.39 Other disorders of phosphorus metabolism; R79.9 Abnormal finding of blood chemistry, unspecified; M79.661 Pain in right lower leg; D63.0 Anemia in neoplastic disease
CPT/HCPCS: 36415; 80053; 85025

== ENCOUNTER → 2024-12-23 10:13 | Outpatient (REF) | payer BC, SELFPAY ==
[2024-12-23 11:35] LABS: Hematocrit 29.1 % (39.0-52.0); Hemoglobin 8.5 g/dL (13.0-18.0); Mean Corp Hgb Conc. 29.2 g/dL (33.0-37.0); Mean Corpuscular Volume 87.4 fL (80.0-94.0); Nucleated Red Blood Cells % 0 % (-); Platelet Count 134 10^3/uL (130-400); Red Cell Dist. Width 20.9 % (11.5-14.5)
[2024-12-23 12:52] LABS: ALT (SGPT) 23 U/L (0-50); AST (SGOT) 35 U/L (17-59); Albumin 3.9 g/dl (3.5-5.0); Alkaline Phosphatase 182 U/L (38-126); Blood Urea Nitrogen 9 mg/dl (9-20); Calcium 9.1 mg/dl (8.4-10.2); Carbon Dioxide 24 mmol/L (22-30); Chloride 107 mmol/L (98-107); Glucose 117 mg/dl (70-99); Potassium 4.3 mmol/L (3.5-5.1); Sodium 139 mmol/L (135-145); Total Protein 6.3 g/dl (6.3-8.2); eGFR > 60.00
[2024-12-23 20:27] LABS: CEA 72.4 ng/ml
== END ==
LOC: REG 10:13
PROVIDERS: ATTENDING PHYSICIAN Internal Medicine Hematology & Oncology
DX: C18.7 Malignant neoplasm of sigmoid colon (principal); C78.01 Secondary malignant neoplasm of right lung; R91.1 Solitary pulmonary nodule; D75.839 Thrombocytosis, unspecified; D50.0 Iron deficiency anemia secondary to blood loss (chronic); D50.9 Iron deficiency anemia, unspecified; K12.31 Oral mucositis (ulcerative) due to antineoplastic therapy; D51.9 Vitamin B12 deficiency anemia, unspecified; E83.39 Other disorders of phosphorus metabolism; R79.9 Abnormal finding of blood chemistry, unspecified; M79.661 Pain in right lower leg; D63.0 Anemia in neoplastic disease
CPT/HCPCS: 36415; 80053; 82378; 85025

== ENCOUNTER 2024-12-24 06:17 | Day surgery (SDC) | payer BC, SELFPAY ==
[2024-12-24 11:33] VITALS: BMI 25.9
[2024-12-24 11:34] VITALS: BMI 25.9
[2024-12-24 11:36] VITALS: BP 128/72
[2024-12-24 12:53] VITALS: BP 91/65
[2024-12-24 13:00] VITALS: BP 96/63
[2024-12-24 13:15] VITALS: BP 102/62
== END 2024-12-24 13:28 | disposition home or self-care (01) ==
LOC: GI 06:17
PROVIDERS: ATTENDING PHYSICIAN Internal Medicine Gastroenterology
DX: D50.0 Iron deficiency anemia secondary to blood loss (chronic) (principal); K22.10 Ulcer of esophagus without bleeding; Z85.038 Personal history of other malignant neoplasm of large intestine
CPT/HCPCS: 43239; 88305; 88342

== ENCOUNTER → 2025-01-06 09:54 | Outpatient (REF) | payer BC, SELFPAY ==
[2025-01-06 10:54] LABS: Hematocrit 28.9 % (39.0-52.0); Hemoglobin 8.4 g/dL (13.0-18.0); Mean Corp Hgb Conc. 29.1 g/dL (33.0-37.0); Mean Corpuscular Volume 85.8 fL (80.0-94.0); Nucleated Red Blood Cells % 0 % (-); Platelet Count 146 10^3/uL (130-400); Red Cell Dist. Width 20.6 % (11.5-14.5)
[2025-01-06 11:57] LABS: ALT (SGPT) 21 U/L (0-50); AST (SGOT) 31 U/L (17-59); Albumin 3.8 g/dl (3.5-5.0); Alkaline Phosphatase 210 U/L (38-126); Blood Urea Nitrogen 10 mg/dl (9-20); Calcium 9.1 mg/dl (8.4-10.2); Carbon Dioxide 25 mmol/L (22-30); Chloride 107 mmol/L (98-107); Glucose 96 mg/dl (70-99); Potassium 4.2 mmol/L (3.5-5.1); Sodium 138 mmol/L (135-145); Total Protein 6.5 g/dl (6.3-8.2); eGFR > 60.00
[2025-01-06 20:28] LABS: CEA 72.6 ng/ml
== END ==
LOC: REG 09:54
PROVIDERS: ATTENDING PHYSICIAN Internal Medicine Hematology & Oncology; FAMILY PHYSICIAN Nurse Practitioner Adult Health
DX: C18.7 Malignant neoplasm of sigmoid colon (principal); C78.7 Secondary malignant neoplasm of liver and intrahepatic bile duct; C78.01 Secondary malignant neoplasm of right lung; R91.1 Solitary pulmonary nodule; D75.839 Thrombocytosis, unspecified; D50.0 Iron deficiency anemia secondary to blood loss (chronic); D50.9 Iron deficiency anemia, unspecified; K12.31 Oral mucositis (ulcerative) due to antineoplastic therapy; D51.9 Vitamin B12 deficiency anemia, unspecified; E83.39 Other disorders of phosphorus metabolism; R79.9 Abnormal finding of blood chemistry, unspecified; M79.661 Pain in right lower leg; D63.0 Anemia in neoplastic disease
CPT/HCPCS: 36415; 80053; 82378; 85025

== ENCOUNTER → 2025-01-20 09:01 | Outpatient (REF) | payer BC, SELFPAY ==
[2025-01-20 10:33] LABS: ALT (SGPT) 21 U/L (0-50); AST (SGOT) 34 U/L (17-59); Albumin 4.0 g/dl (3.5-5.0); Alkaline Phosphatase 308 U/L (38-126); Blood Urea Nitrogen 9 mg/dl (9-20); Calcium 9.4 mg/dl (8.4-10.2); Carbon Dioxide 23 mmol/L (22-30); Chloride 106 mmol/L (98-107); Glucose 98 mg/dl (70-99); HDL Cholesterol 36 mg/dl; LDL Cholesterol, Calculated 85 mg/dl; Potassium 4.2 mmol/L (3.5-5.1); Sodium 140 mmol/L (135-145); Total Protein 6.8 g/dl (6.3-8.2); Very Low Density Lipoprotein 16 mg/dl (0-30); eGFR > 60.00
[2025-01-20 10:50] LABS: Absolute Neutrophils -Man Diff 2.5 10^3/uL (1.4-6.5); Hematocrit 28.4 % (39.0-52.0); Hemoglobin 8.6 g/dL (13.0-18.0); Mean Corp Hgb Conc. 30.3 g/dL (33.0-37.0); Mean Corpuscular Volume 85.5 fL (80.0-94.0); Platelet Count 144 10^3/uL (130-400); Red Cell Dist. Width 21.0 % (11.5-14.5)
[2025-01-20 10:51] LABS: Acanthocytes FEW; Anisocytosis 1+; Hypochromasia 1+; Normal RBC Morphology No; Ovalocytes 1+; Platelets Checked Yes; Polychromasia 1+; Schistocytes FEW; Stomatocytes 1+; Target Cells FEW; Tear Drop Red Blood Cells FEW; Total Cells Counted 100
[2025-01-20 11:09] LABS: CEA 94.5 ng/ml; PSA, Total - Screen 1.23 ng/ml (0.0-4.0)
== END ==
LOC: REG 09:01
PROVIDERS: ATTENDING PHYSICIAN Internal Medicine Hematology & Oncology; FAMILY PHYSICIAN Nurse Practitioner Adult Health
DX: Z00.00 Encounter for general adult medical examination without abnormal findings (principal); Z12.5 Encounter for screening for malignant neoplasm of prostate; C18.7 Malignant neoplasm of sigmoid colon; C78.7 Secondary malignant neoplasm of liver and intrahepatic bile duct; C78.01 Secondary malignant neoplasm of right lung; R91.1 Solitary pulmonary nodule; D75.829 Heparin-induced thrombocytopenia, unspecified; D50.0 Iron deficiency anemia secondary to blood loss (chronic); K12.31 Oral mucositis (ulcerative) due to antineoplastic therapy; E83.39 Other disorders of phosphorus metabolism; R79.9 Abnormal finding of blood chemistry, unspecified; M79.661 Pain in right lower leg; D63.0 Anemia in neoplastic disease
CPT/HCPCS: 36415; 80053; 80061; 82378; 85025; G0103

== ENCOUNTER → 2025-01-21 08:22 | Outpatient (REF) | payer BC, SELFPAY | LOC: RAD 08:22 | PROVIDERS: ATTENDING PHYSICIAN Internal Medicine Hematology & Oncology; FAMILY PHYSICIAN Nurse Practitioner Adult Health | DX: C18.7 Malignant neoplasm of sigmoid colon (principal); C78.7 Secondary malignant neoplasm of liver and intrahepatic bile duct; C78.01 Secondary malignant neoplasm of right lung; R91.1 Solitary pulmonary nodule; D75.839 Thrombocytosis, unspecified; D50.0 Iron deficiency anemia secondary to blood loss (chronic); D50.9 Iron deficiency anemia, unspecified; K12.31 Oral mucositis (ulcerative) due to antineoplastic therapy; D51.9 Vitamin B12 deficiency anemia, unspecified; E83.89 Other disorders of mineral metabolism; R79.9 Abnormal finding of blood chemistry, unspecified; M79.661 Pain in right lower leg; D63.0 Anemia in neoplastic disease | CPT/HCPCS: 71260; 74177; Q9967 ==